=== PATIENT | female | born 1985 | race Caucasian/White ===

== ENCOUNTER 2020-04-09 21:58 | Inpatient (IN) ==
--- NOTE | 2020-04-09 22:55 | Obstetrical Progress Note ---
Date of Service April 09, 2020 Results & Data Vital Signs (Past 12 Hours) Vital Signs Temp Pulse Resp BP 04/09/20 22:12 36.5 C 82 18 133/91 04/09/20 22:10 82 133/91 PG Care Time/CCT Total # of Minutes Spent Total Time Spent with Patient: Total time spent is greater than 50% in coordination of care (as documented) at patient's floor/unit and/or counseling patient: Coding
[2020-04-09] MEDS ORDERED: OXYTOCIN 30 UNITS/500 ML BAG IV PRN (23:46)
--- NOTE | 2020-04-09 23:48 | History & Physical Report ---
Date of Service April 09, 2020 Assessment & Plan (1) Prolonged , antepartum: 34yo at 41.3 weeks GA. Patient presents in early labor. 1. Fetus: Cat 1 2. Labor: Progressing. Will admit and augment as needed 3. Vitals: WNL 4. GBS negative (2) Supervision of normal intrauterine in primigravida: History of Present Illness Primary Care Provider: Sandip Paulino, 34yo at 41.3 weeks GA. Patient presents in early labor. Denies VB, LOF. Good FM. complicated by Hx of LSIL pap with unremarkable colposcopy in early . Blood Type A Positive 09/01/19 Antibody Screen NEGATIVE 09/01/19 Hemoglobin 11.4 g/dL (12.0-16.0) L 03/14/20 Hematocrit 34.0 % (37-47) L 03/14/20 Mean Corpuscular Volume 90.7 fL (80-100) 03/14/20 Platelet Count 254 K/uL (130-400) 03/14/20 Rubella IgG Antibody Immune (Immune) 09/01/19 Rapid Plasma Reagin Nonreactive (Nonreactive) 09/01/19 Hepatitis B Surface Antigen Neg (Neg) 09/01/19 HIV (1&2) Ab and P24 Ag, 4th Gener Neg (Neg) 09/01/19 Glucose 1 Hour 50 gm Load 136 mg/dl (70-130) H 01/06/20 OB Optional Labs: Chlamydia trachomatis RNA NOT DETECTED (NOT DETECTED) Neisseria gonorrhoeae RNA NOT DETECTED (NOT DETECTED) Labs Reviewed: (-)cfDNA Patient declines CF/SMA- [facility] 2hr GTT 01/16/20 80/159/101-[facility] (-)GBS Allergies Allergy/AdvReac Type Severity Reaction Status Date / Time wheat Allergy Intermediate hives Verified 04/09/20 12:35 Influenza Virus Vaccines AdvReac Intermediate Headache Verified 04/09/20 12:35 dichloralphenazone AdvReac Mild emotional Verified 04/09/20 12:35 [From Midrin] breakdown isometheptene [From Midrin] AdvReac Mild emotional Verified 04/09/20 12:35 breakdown Home Medications Home Medications Medication Instructions Recorded Confirmed Type [id number]-[id number] fumarate-FA 1 tab PO DAILY 03/14/20 04/09/20 History [] psyllium husk [Fiber (psyllium 0.4 g PO DAILY 03/14/20 04/09/20 History husk)] Patient History Medical History Abnormal biochemical finding on screening of mother Anemia Breast tumor Breech presentation of fetus Depression with anxiety Encounter for anatomic survey Migraine Neutropenia UTI (urinary tract infection) UTI (urinary tract infection) during Varicella Surgical History History of colposcopy S/P wisdom tooth extraction Family History Mother Anemia Thyroid disease Depression Father Hypertension Hypercholesteremia Drinking problem Grandfather (Maternal) Hypertension Grandfather (Paternal) Hypertension Hypercholesteremia Grandmother (Maternal) Breast cancer Cervical cancer History of hysterectomy Depression Aunt Breast cancer Sister Depression Social History Preferred Language: Japanese Communication Ability: Effective Visual Impairment: No Limitations Hearing Ability: Normal Funeral Greeter Required: No Beliefs That Will Affect Care: None marital status: marital status details: Paul Li (33) [phone] Current Living Situation: Spouse Current Living Situation Comment: dog current occupational status: employed current occupation: Physical Therapist Other Information That Helps Us Care for You: No Feels Safe at Home: Yes Safety Concerns: Feels Safe At This Time Smoking Status: Never smoker Second Hand Exposure: No ; Hx Alcohol Use: No Hx Substance Use: No Childhood Exposure to Second-Hand Smoke: No Dental Care, Regularly: Yes Physical Activity Frequency: Does not Exercise Seatbelt Use: always Sunscreen Use: Yes Physical Exam Respiratory: normal respiratory effort, lungs clear to auscultation Cardiovascular: Rate/Rhythm: regular rate and regular rhythm Gastrointestinal (Abdomen): Percussion/Palpation: abdomen soft; abdomen nontender, no guarding and abdomen not rigid Psychiatric: A+Ox3, euthymic affect Genitourinary: Manual OB Exam: + cervical dilation 4 cm, + cervical effacement 80% and + station -2 OB Exam Monitor Tracing: + external FHT monitor used, + external uterine monitor used and + category I; no normal FHT variability, no late decelerations present and no variable decelerations Progressed from 3 to 4cm over 1hr labor check Results & Data Vital Signs (Past 12 Hours) Vital Signs Temp Pulse Resp BP 04/09/20 22:12 36.5 C 82 18 133/91 04/09/20 22:10 82 133/91 Coding Level of Care Code None Diagnoses Prolonged , antepartum O48.1 Supervision of normal intrauterine in primigravida Z34.00
[2020-04-10 00:08] LABS: Hematocrit (blood only) 34.3 % (37-47); Hemoglobin 11.7 g/dL (12.0-16.0); Mean Corpuscular Hemoglobin 30.5 pg (25-34); Mean Corpuscular Volume 89.3 fL (80-100); Mean Platelet Volume 10.4 fL (7.4-10.4); Platelet Count 260 K/uL (130-400); RDW Coefficient of Variation 13.5 % (11.5-14.5); RDW Standard Deviation 43.7 fL (36.4-46.3); Red Blood Count 3.84 M/uL (4.2-5.4); White Blood Count 12.26 K/uL (4.8-10.8)
[2020-04-10 00:25] LABS: Mean Corpuscular Hgb Conc 34.1 g/dL (32-36)
[2020-04-10] MEDS: LACTATED RINGER'S 1,000 ML IV PRN ×3 (02:09→10:52)
[2020-04-10] MEDS ORDERED: NALOXONE HCL 0.4 MG/1 ML VIAL/CARP IV PRN (02:44)
[2020-04-10] MEDS ORDERED: ONDANSETRON INJ 2 MG/ML 2 ML VIAL IV PRN (02:44)
[2020-04-10] MEDS ORDERED: NALBUPHINE HCL INJ 10 MG/ML AMP IV PRN (02:44)
[2020-04-10] MEDS ORDERED: DiphenhydrAMINE HCL 50 MG/ML VIAL IV PRN (02:44)
[2020-04-10] MEDS ORDERED: ePHEDrine sulfate 50 MG/ML AMP IV PRN (02:44)
[2020-04-10] MEDS ORDERED: NALOXONE HCL 1 MG in SODIUM CHLORIDE 0.9% 1000ML 1,000 ML IV PRN (02:44)
--- NOTE | 2020-04-10 02:51 | Anesthesiology Consultation ---
Date of Service April 10, 2020 Assessment & Plan Chart Review Chart Review: Patient NOT seen in Pre Admission Testing and Acceptable Risk for Labor Epidural Consults Requested none ASA ASA2 Proposed Anesthesia Anesthesia Type: Labor Epidural and CSE Risk / Benefits Reviewed With: PT / POA / Parent / Guardian, Accepts Plan and Informed Consent Obtained History Height/Weight Height: 5 ft 3 in Weight: 79.379 kg Allergies Allergy/AdvReac Type Severity Reaction Status Date / Time wheat Allergy Intermediate hives Verified 04/09/20 12:35 Influenza Virus Vaccines AdvReac Intermediate Headache Verified 04/09/20 12:35 dichloralphenazone AdvReac Mild emotional Verified 04/09/20 12:35 [From Midrin] breakdown isometheptene [From Midrin] AdvReac Mild emotional Verified 04/09/20 12:35 breakdown Medications Home Medications Medication Instructions Recorded Confirmed Last Taken [id number]-awtvhey fumarate-FA 1 tab PO DAILY 03/14/20 04/09/20 04/09/20 [] psyllium husk [Fiber (psyllium 0.4 g PO DAILY 03/14/20 04/09/20 04/09/20 husk)] Active Medications Generic Name Dose Route Start Last Admin Trade Name Freq PRN Reason Stop Dose Admin Lactated Ringer's 1,000 mls @ 125 mls/hr 04/09/20 23:46 04/10/20 02:09 Lr IV 04/11/20 23:45 999 mls/hr .Q8H PRN Administration L&D Protocol Protocol NPO Date Last Intake of Fluids: 04/10/20 Time Last Intake of Fluids: 01:00 Date Last Intake of Solids: 04/09/20 Time Last Intake of Solids: 21:00 Past Medical History Medical History Abnormal biochemical finding on screening of mother Anemia Breast tumor Breech presentation of fetus Depression with anxiety Encounter for anatomic survey Migraine Neutropenia UTI (urinary tract infection) UTI (urinary tract infection) during Varicella Exercise / Class Metabolic Activity II 4-5 Yardwork/Stairs/Walk up hill Past Family History Family History Mother Anemia Thyroid disease Depression Father Hypertension Hypercholesteremia Drinking problem Grandfather (Maternal) Hypertension Grandfather (Paternal) Hypertension Hypercholesteremia Grandmother (Maternal) Breast cancer Cervical cancer History of hysterectomy Depression Aunt Breast cancer Sister Depression Past Surgical History Surgical History History of colposcopy S/P wisdom tooth extraction Past Anesthesia History No Hx of Anesthesia Complications and No Family Hx of Anesthesia Complications Social History Smoking Status: Never smoker Hx Alcohol Use: No Hx Substance Use: No Review of Systems no chest pain or sob Physical Exam Vital Signs Last Vital Signs Temp 36.4 C L 04/10/20 02:36 Pulse 85 04/10/20 02:40 Resp 18 04/10/20 02:36 BP 128/88 04/10/20 02:36 Pulse Ox 97 04/10/20 02:40 ENMT Mouth: no TMJ abnormality Thyromental Distance: > or= 3.5 Finger Breadths Mallampati Class: II Neck normal visual inspection Respiratory normal respiratory effort Auscultation: lungs clear to auscultation bilaterally Cardiovascular Rate/Rhythm: regular rate and regular rhythm Musculoskeletal Spine: normal cervical ROM Neurologic moves all extremities Psychiatric Orientation: alert and oriented x 3 Testing Laboratory Results 04/09/20 23:53
[2020-04-10] MEDS: fentaNYL 2MCG/ML ROPIV 1.25MG/ML 100 ML BAG EPI PRN ×2 (03:10→10:51)
[2020-04-10] MEDS ORDERED: ePHEDrine sulfate 50 MG/ML AMP ONE (03:13)
[2020-04-10] MEDS ORDERED: BUPIVACAINE 0.25% 30 ML VIAL ONE (03:13)
[2020-04-10] MEDS ORDERED: fentaNYL citrate 100 MCG/2 ML VIAL ONE (03:13)
[2020-04-10] MEDS ORDERED: fentaNYL 2MCG/ML ROPIV 1.25MG/ML 100 ML BAG EPI ONE ×2 (03:14→14:39)
--- NOTE | 2020-04-10 08:14 | Labor Progress Brief Note ---
Date of Service April 10, 2020 Subjective Reason For Note: Routine Evaluation Assessment & Plan (1) Prolonged , antepartum: 34yo at 41.3 weeks GA. Patient presents in early labor. 1. Fetus: Cat 1 2. Labor: Progressing. Will admit and augment as needed 3. Vitals: WNL 4. GBS negative (2) Supervision of normal intrauterine in primigravida: Physical Exam Genitourinary: Manual OB Exam: + cervical dilation 8 cm, + cervical effacement 90%, + station 0 and + amniotic fluid meconium OB Exam Monitor Tracing: + external FHT monitor used, + external uterine monitor used, + category I and + normal FHT variability; no early decelerations present, no late decelerations present and no variable decelerations Results & Data Vital Signs (Past 12 Hours) Vital Signs Temp Pulse Resp BP Pulse Ox 04/10/20 08:10 98 H 96 04/10/20 08:05 87 96 04/10/20 08:00 79 96 04/10/20 07:59 88 113/71 04/10/20 07:55 92 H 97 04/10/20 07:50 100 H 97 04/10/20 07:46 87 121/72 04/10/20 07:45 37.1 C 90 20 96 04/10/20 07:40 84 95 04/10/20 07:35 89 95 04/10/20 07:31 82 107/61 04/10/20 07:30 83 95 04/10/20 07:25 80 96 04/10/20 07:20 72 95 04/10/20 07:15 77 96 04/10/20 07:14 75 20 106/64 04/10/20 07:10 80 96 04/10/20 07:05 77 96 04/10/20 07:00 92 H 97 04/10/20 06:59 75 108/65 04/10/20 06:57 94 H 93 04/10/20 06:55 76 95 04/10/20 06:50 88 95 04/10/20 06:45 78 96 04/10/20 06:44 85 109/69 04/10/20 06:40 79 96 04/10/20 06:35 89 95 04/10/20 06:32 91 H 94 04/10/20 06:30 100 H 95 05/12/20 06:29 86 111/67 0520 06:26 98 H 94 0520 06:25 92 H 95 0520 06:20 87 95 0520 06:19 81 94 0520 06:15 76 95 0520 06:14 83 105/66 0520 06:12 81 94 051220 06:10 88 95 05 06:05 88 95 05 06:01 78 104/66 0520 06:00 77 95 0520 05:55 90 96 05 05:50 87 96 05 05:46 36.6 C 69 18 113/67 04/10/20 05:45 72 97 05 05:40 91 H 97 05 05:35 107 H 97 04/10/20 05:30 87 96 05 05:29 83 112/71 05 05:25 88 96 05 05:20 87 96 05 05:15 91 H 96 05 05:14 78 113/72 05 05:10 88 95 05 05:05 79 96 05 05:00 88 96 05 04:59 87 112/73 0520 04:58 84 94 05 04:55 84 95 05 04:50 86 95 05 04:45 83 96 0520 04:44 80 111/70 0520 04:40 89 95 051220 04:35 80 95 051220 04:30 78 95 051220 04:29 84 112/68 0520 04:25 90 95 0520 04:20 81 95 0520 04:15 81 95 051220 04:14 77 115/71 051220 04:10 82 95 0520 04:05 79 95 051220 04:00 84 97 0512 03:59 78 112/71 0520 03:55 84 95 0520 03:51 80 94 0520 03:50 78 94 04/10/20 03:45 79 95 04/10/20 03:44 82 114/67 04/10/20 03:40 88 94 04/10/20 03:35 83 95 04/10/20 03:30 86 95 04/10/20 03:28 88 110/69 04/10/20 03:25 88 96 04/10/20 03:24 91 H 94 04/10/20 03:23 88 113/72 04/10/20 03:20 97 H 95 04/10/20 03:18 92 H 114/61 04/10/20 03:15 92 H 96 04/10/20 03:11 96 H 109/68 04/10/20 03:10 92 H 95 04/10/20 03:09 95 H 111/74 04/10/20 03:07 93 H 111/69 04/10/20 03:05 91 H 118/72 96 04/10/20 03:00 86 97 04/10/20 02:55 88 97 04/10/20 02:50 90 98 04/10/20 02:45 86 97 04/10/20 02:40 85 97 04/10/20 02:36 36.4 C L 81 18 128/88 04/10/20 02:35 85 98 04/09/20 22:12 36.5 C 82 18 133/91 04/09/20 22:10 82 133/91 Coding Level of Care Code None Diagnoses Prolonged , antepartum O48.1 Supervision of normal intrauterine in primigravida Z34.00
--- NOTE | 2020-04-10 09:10 | Labor Progress Brief Note ---
Date of Service April 10, 2020 Subjective comfortable Assessment & Plan (1) Prolonged , antepartum: contractions have spaced, plan to add pitocin for augmentation. Fetus category one. Physical Exam Constitutional: WD/WN, vitals as above Psychiatric: A+Ox3, euthymic affect Genitourinary: cx--/-2 toco--q2-5min efm--140s with mod variability accels to 170s, no decels Results & Data Vital Signs (Past 12 Hours) Vital Signs Temp Pulse Resp BP Pulse Ox 04/10/20 09:05 82 96 04/10/20 09:00 81 97 04/10/20 08:59 78 115/74 04/10/20 08:55 87 96 04/10/20 08:50 73 96 04/10/20 08:45 80 97 04/10/20 08:44 79 117/80 04/10/20 08:40 76 97 04/10/20 08:35 91 H 96 04/10/20 08:30 77 97 04/10/20 08:29 88 116/73 04/10/20 08:25 92 H 97 04/10/20 08:20 83 97 04/10/20 08:15 87 96 04/10/20 08:14 80 118/74 04/10/20 08:10 98 H 96 04/10/20 08:05 87 96 04/10/20 08:00 79 96 04/10/20 07:59 88 113/71 04/10/20 07:55 92 H 97 04/10/20 07:50 100 H 97 04/10/20 07:46 87 121/72 04/10/20 07:45 37.1 C 90 20 96 04/10/20 07:40 84 95 04/10/20 07:35 89 95 04/10/20 07:31 82 107/61 04/10/20 07:30 83 95 04/10/20 07:25 80 96 04/10/20 07:20 72 95 04/10/20 07:15 77 96 04/10/20 07:14 75 20 106/64 04/10/20 07:10 80 96 04/10/20 07:05 77 96 04/10/20 07:00 92 H 97 04/10/20 06:59 75 108/65 04/10/20 06:57 94 H 93 05 06:55 76 95 05 06:50 88 95 05 06:45 78 96 05 06:44 85 109/69 05 06:40 79 96 05 06:35 89 95 05 06:32 91 H 94 05 06:30 100 H 95 05 06:29 86 111/67 05 06:26 98 H 94 05 06:25 92 H 95 05 06:20 87 95 05 06:19 81 94 05 06:15 76 95 05 06:14 83 105/66 05 06:12 81 94 05 06:10 88 95 04/10/20 06:05 88 95 04/10/20 06:01 78 104/66 05 06:00 77 95 04/10/20 05:55 90 96 04/10/20 05:50 87 96 04/10/20 05:46 36.6 C 69 18 113/67 04/10/20 05:45 72 97 04/10/20 05:40 91 H 97 04/10/20 05:35 107 H 97 04/10/20 05:30 87 96 05 05:29 83 112/71 04/10/20 05:25 88 96 05 05:20 87 96 04/10/20 05:15 91 H 96 04/10/20 05:14 78 113/72 05 05:10 88 95 05 05:05 79 96 05 05:00 88 96 05 04:59 87 112/73 05 04:58 84 94 05 04:55 84 95 05 04:50 86 95 05 04:45 83 96 05 04:44 80 111/70 0520 04:40 89 95 051220 04:35 80 95 051220 04:30 78 95 05 04:29 84 112/68 05 04:25 90 95 05 04:20 81 95 04/10/20 04:15 81 95 04/10/20 04:14 77 115/71 04/10/20 04:10 82 95 04/10/20 04:05 79 95 04/10/20 04:00 84 97 04/10/20 03:59 78 112/71 04/10/20 03:55 84 95 04/10/20 03:51 80 94 04/10/20 03:50 78 94 04/10/20 03:45 79 95 04/10/20 03:44 82 114/67 04/10/20 03:40 88 94 04/10/20 03:35 83 95 04/10/20 03:30 86 95 04/10/20 03:28 88 110/69 04/10/20 03:25 88 96 04/10/20 03:24 91 H 94 04/10/20 03:23 88 113/72 04/10/20 03:20 97 H 95 04/10/20 03:18 92 H 114/61 04/10/20 03:15 92 H 96 04/10/20 03:11 96 H 109/68 04/10/20 03:10 92 H 95 04/10/20 03:09 95 H 111/74 04/10/20 03:07 93 H 111/69 04/10/20 03:05 91 H 118/72 96 04/10/20 03:00 86 97 04/10/20 02:55 88 97 04/10/20 02:50 90 98 04/10/20 02:45 86 97 04/10/20 02:40 85 97 04/10/20 02:36 36.4 C L 81 18 128/88 04/10/20 02:35 85 98 04/09/20 22:12 36.5 C 82 18 133/91 04/09/20 22:10 82 133/91 Coding Level of Care Code None Diagnoses Prolonged , antepartum O48.1
[2020-04-10] MEDS ORDERED: OXYTOCIN 30 UNITS/500 ML BAG IV PRN ×2 (09:20→17:59)
--- NOTE | 2020-04-10 15:15 | Labor Progress Brief Note ---
Date of Service April 10, 2020 Subjective feeling some pressure. needed pitocin. Assessment & Plan (1) Prolonged , antepartum: Will begin stage 2. fetus overall reassuring. Physical Exam Constitutional: WD/WN, vitals as above Psychiatric: A+Ox3, euthymic affect Genitourinary: cx--c/c/+1 toco--q2-3min efm--140s wtih mod variability, small accels, rare variable Results & Data Vital Signs (Past 12 Hours) Vital Signs Temp Pulse Resp BP Pulse Ox 04/10/20 15:10 91 H 100 04/10/20 15:05 81 97 04/10/20 15:01 85 130/80 04/10/20 15:00 91 H 97 04/10/20 14:55 85 98 04/10/20 14:50 86 99 04/10/20 14:46 82 119/82 04/10/20 14:45 81 98 04/10/20 14:40 86 97 04/10/20 14:35 70 98 04/10/20 14:30 82 112/74 97 04/10/20 14:25 70 98 04/10/20 14:20 77 99 04/10/20 14:15 72 99 04/10/20 14:14 75 132/83 04/10/20 14:10 68 99 04/10/20 14:05 69 97 04/10/20 14:00 37.3 C 71 20 120/79 97 04/10/20 13:55 74 98 04/10/20 13:50 69 98 04/10/20 13:46 78 112/77 04/10/20 13:45 78 97 04/10/20 13:40 91 H 97 04/10/20 13:35 96 H 98 04/10/20 13:30 73 96 04/10/20 13:29 75 106/69 04/10/20 13:25 87 97 04/10/20 13:20 74 97 04/10/20 13:16 75 104/63 04/10/20 13:15 74 97 04/10/20 13:10 68 97 04/10/20 13:05 79 96 04/10/20 13:00 68 96 04/10/20 12:59 78 106/65 04/10/20 12:55 72 98 04/10/20 12:53 37.1 C 18 20 12:50 75 96 05/1220 12:45 80 103/64 96 05/1220 12:40 71 96 0520 12:35 71 97 0520 12:30 73 98 05/1220 12:29 64 114/72 0520 12:25 66 95 05/20 12:20 81 96 0520 12:15 69 97 0520 12:14 68 107/70 0520 12:10 75 97 0520 12:05 70 96 05/20 12:00 68 112/67 96 05/20 11:55 63 97 05/20 11:50 67 97 0520 11:45 69 97 05/20 11:44 71 108/71 0520 11:40 69 95 05/20 11:35 67 97 05/20 11:30 67 111/68 96 0520 11:25 72 97 05/20 11:20 76 97 05/1220 11:15 80 96 05/20 11:14 73 108/66 05//20 11:10 67 96 05/20 11:05 81 95 0520 11:00 81 96 0520 10:59 77 108/63 05/12/20 10:57 69 94 05/12/20 10:56 37.3 C 20 04/10/20 10:55 78 96 0520 10:50 75 97 051220 10:45 72 110/69 97 05/12/20 10:40 71 97 05/12/20 10:35 78 96 05/12/20 10:30 90 113/70 96 05/12/20 10:25 89 97 05/12/20 10:20 68 98 05/12/20 10:15 73 109/65 96 05/12/20 10:10 83 96 05/12/20 10:05 69 97 05/12/20 10:00 72 121/70 96 05/12/20 09:55 73 97 05/1220 09:50 78 97 05/1220 09:45 71 118/74 96 05/12/20 09:40 71 96 05/12/20 09:35 68 97 05 09:30 72 113/74 96 04/10/20 09:25 73 97 04/10/20 09:20 76 96 04/10/20 09:15 81 96 05 09:14 79 113/74 04/10/20 09:10 75 96 04/10/20 09:05 82 96 04/10/20 09:00 36.9 C 81 20 97 04/10/20 08:59 78 115/74 04/10/20 08:55 87 96 04/10/20 08:50 73 96 04/10/20 08:45 80 97 04/10/20 08:44 79 117/80 04/10/20 08:40 76 97 04/10/20 08:35 91 H 96 04/10/20 08:30 77 97 04/10/20 08:29 88 116/73 04/10/20 08:25 92 H 97 04/10/20 08:20 83 97 04/10/20 08:15 87 96 04/10/20 08:14 80 118/74 04/10/20 08:10 98 H 96 04/10/20 08:05 87 96 04/10/20 08:00 79 96 04/10/20 07:59 88 113/71 04/10/20 07:55 92 H 97 04/10/20 07:50 100 H 97 04/10/20 07:46 87 121/72 04/10/20 07:45 37.1 C 90 20 96 04/10/20 07:40 84 95 04/10/20 07:35 89 95 04/10/20 07:31 82 107/61 04/10/20 07:30 83 95 04/10/20 07:25 80 96 04/10/20 07:20 72 95 04/10/20 07:15 77 96 05 07:14 75 20 106/64 04/10/20 07:10 80 96 04/10/20 07:05 77 96 04/10/20 07:00 92 H 97 04/10/20 06:59 75 108/65 04/10/20 06:57 94 H 93 04/10/20 06:55 76 95 04/10/20 06:50 88 95 04/10/20 06:45 78 96 05 06:44 85 109/69 0520 06:40 79 96 05 06:35 89 95 05 06:32 91 H 94 05 06:30 100 H 95 05 06:29 86 111/67 04/10/20 06:26 98 H 94 05 06:25 92 H 95 05 06:20 87 95 04/10/20 06:19 81 94 05 06:15 76 95 05 06:14 83 105/66 05 06:12 81 94 05 06:10 88 95 04/10/20 06:05 88 95 04/10/20 06:01 78 104/66 05 06:00 77 95 04/10/20 05:55 90 96 05 05:50 87 96 04/10/20 05:46 36.6 C 69 18 113/67 04/10/20 05:45 72 97 05 05:40 91 H 97 04/10/20 05:35 107 H 97 04/10/20 05:30 87 96 04/10/20 05:29 83 112/71 05 05:25 88 96 04/10/20 05:20 87 96 05 05:15 91 H 96 04/10/20 05:14 78 113/72 05 05:10 88 95 04/10/20 05:05 79 96 05 05:00 88 96 04/10/20 04:59 87 112/73 05 04:58 84 94 05 04:55 84 95 05 04:50 86 95 0520 04:45 83 96 05 04:44 80 111/70 0520 04:40 89 95 05 04:35 80 95 0520 04:30 78 95 0520 04:29 84 112/68 051220 04:25 90 95 0520 04:20 81 95 051220 04:15 81 95 05 04:14 77 115/71 05 04:10 82 95 04/10/20 04:05 79 95 04/10/20 04:00 84 97 04/10/20 03:59 78 112/71 04/10/20 03:55 84 95 04/10/20 03:51 80 94 04/10/20 03:50 78 94 04/10/20 03:45 79 95 04/10/20 03:44 82 114/67 04/10/20 03:40 88 94 04/10/20 03:35 83 95 04/10/20 03:30 86 95 04/10/20 03:28 88 110/69 04/10/20 03:25 88 96 04/10/20 03:24 91 H 94 04/10/20 03:23 88 113/72 04/10/20 03:20 97 H 95 04/10/20 03:18 92 H 114/61 04/10/20 03:15 92 H 96 Coding Level of Care Code None Diagnoses Prolonged , antepartum O48.1
--- NOTE | 2020-04-10 15:46 | Labor Progress Brief Note ---
Date of Service April 10, 2020 Subjective pushing with excellent effort Assessment & Plan (1) Prolonged , antepartum: continue second stage . fetus reassuring. anticipate . Physical Exam Constitutional: WD/WN, vitals as above Psychiatric: A+Ox3, euthymic affect Genitourinary: station +1-2 with push efm--150s with mod variability, variable to 90s with push, good return. Results & Data Vital Signs (Past 12 Hours) Vital Signs Temp Pulse Resp BP Pulse Ox 04/10/20 15:44 86 138/71 04/10/20 15:40 99 H 96 04/10/20 15:35 88 97 04/10/20 15:30 89 137/72 98 04/10/20 15:25 90 97 04/10/20 15:20 117 H 96 04/10/20 15:15 115 H 133/80 99 04/10/20 15:10 91 H 100 04/10/20 15:05 81 97 04/10/20 15:01 85 130/80 04/10/20 15:00 91 H 97 04/10/20 14:55 85 98 04/10/20 14:50 86 99 04/10/20 14:46 82 119/82 04/10/20 14:45 81 98 04/10/20 14:40 86 97 04/10/20 14:35 70 98 04/10/20 14:30 82 112/74 97 04/10/20 14:25 70 98 04/10/20 14:20 77 99 04/10/20 14:15 72 99 04/10/20 14:14 75 132/83 04/10/20 14:10 68 99 04/10/20 14:05 69 97 04/10/20 14:00 37.3 C 71 20 120/79 97 04/10/20 13:55 74 98 04/10/20 13:50 69 98 04/10/20 13:46 78 112/77 04/10/20 13:45 78 97 04/10/20 13:40 91 H 97 04/10/20 13:35 96 H 98 04/10/20 13:30 73 96 04/10/20 13:29 75 106/69 04/10/20 13:25 87 97 04/10/20 13:20 74 97 05/12/20 13:16 75 104/63 05/20 13:15 74 97 05/1220 13:10 68 97 05/20 13:05 79 96 0520 13:00 68 96 0520 12:59 78 106/65 05/12/20 12:55 72 98 05/20 12:53 37.1 C 18 0520 12:50 75 96 05/20 12:45 80 103/64 96 0520 12:40 71 96 0520 12:35 71 97 05/1220 12:30 73 98 05/20 12:29 64 114/72 0520 12:25 66 95 05/20 12:20 81 96 0520 12:15 69 97 05/20 12:14 68 107/70 0520 12:10 75 97 0520 12:05 70 96 05/20 12:00 68 112/67 96 0520 11:55 63 97 05/20 11:50 67 97 05/12/20 11:45 69 97 05/12/20 11:44 71 108/71 05/12/20 11:40 69 95 05/12/20 11:35 67 97 05/12/20 11:30 67 111/68 96 05/12/20 11:25 72 97 05/12/20 11:20 76 97 05/12/20 11:15 80 96 05/12/20 11:14 73 108/66 05/12/20 11:10 67 96 05/1220 11:05 81 95 051220 11:00 81 96 05/12/20 10:59 77 108/63 05/12/20 10:57 69 94 05/12/20 10:56 37.3 C 20 0520 10:55 78 96 05/12/20 10:50 75 97 05/12/20 10:45 72 110/69 97 05/12/20 10:40 71 97 05/12/20 10:35 78 96 05/12/20 10:30 90 113/70 96 05/12/20 10:25 89 97 05/12/20 10:20 68 98 05/12/20 10:15 73 109/65 96 05/12/20 10:10 83 96 0520 10:05 69 97 0520 10:00 72 121/70 96 0520 09:55 73 97 05 09:50 78 97 0520 09:45 71 118/74 96 0520 09:40 71 96 0520 09:35 68 97 05 09:30 72 113/74 96 04/10/20 09:25 73 97 05 09:20 76 96 05 09:15 81 96 0520 09:14 79 113/74 05 09:10 75 96 05 09:05 82 96 04/10/20 09:00 36.9 C 81 20 97 04/10/20 08:59 78 115/74 05 08:55 87 96 05 08:50 73 96 04/10/20 08:45 80 97 05 08:44 79 117/80 05 08:40 76 97 04/10/20 08:35 91 H 96 04/10/20 08:30 77 97 05 08:29 88 116/73 05 08:25 92 H 97 04/10/20 08:20 83 97 04/10/20 08:15 87 96 04/10/20 08:14 80 118/74 05 08:10 98 H 96 04/10/20 08:05 87 96 04/10/20 08:00 79 96 04/10/20 07:59 88 113/71 05 07:55 92 H 97 04/10/20 07:50 100 H 97 04/10/20 07:46 87 121/72 0520 07:45 37.1 C 90 20 96 04/10/20 07:40 84 95 051220 07:35 89 95 051220 07:31 82 107/61 051220 07:30 83 95 051220 07:25 80 96 051220 07:20 72 95 051220 07:15 77 96 05 07:14 75 20 106/64 0512/20 07:10 80 96 05/12/20 07:05 77 96 04/10/20 07:00 92 H 97 04/10/20 06:59 75 108/65 05 06:57 94 H 93 04/10/20 06:55 76 95 04/10/20 06:50 88 95 04/10/20 06:45 78 96 04/10/20 06:44 85 109/69 04/10/20 06:40 79 96 04/10/20 06:35 89 95 04/10/20 06:32 91 H 94 04/10/20 06:30 100 H 95 04/10/20 06:29 86 111/67 04/10/20 06:26 98 H 94 04/10/20 06:25 92 H 95 04/10/20 06:20 87 95 04/10/20 06:19 81 94 04/10/20 06:15 76 95 04/10/20 06:14 83 105/66 04/10/20 06:12 81 94 04/10/20 06:10 88 95 04/10/20 06:05 88 95 04/10/20 06:01 78 104/66 04/10/20 06:00 77 95 04/10/20 05:55 90 96 04/10/20 05:50 87 96 04/10/20 05:46 36.6 C 69 18 113/67 04/10/20 05:45 72 97 04/10/20 05:40 91 H 97 04/10/20 05:35 107 H 97 04/10/20 05:30 87 96 04/10/20 05:29 83 112/71 04/10/20 05:25 88 96 05 05:20 87 96 04/10/20 05:15 91 H 96 04/10/20 05:14 78 113/72 04/10/20 05:10 88 95 04/10/20 05:05 79 96 04/10/20 05:00 88 96 04/10/20 04:59 87 112/73 05 04:58 84 94 04/10/20 04:55 84 95 04/10/20 04:50 86 95 04/10/20 04:45 83 96 04/10/20 04:44 80 111/70 05 04:40 89 95 05 04:35 80 95 04/10/20 04:30 78 95 04/10/20 04:29 84 112/68 04/10/20 04:25 90 95 04/10/20 04:20 81 95 04/10/20 04:15 81 95 04/10/20 04:14 77 115/71 04/10/20 04:10 82 95 04/10/20 04:05 79 95 04/10/20 04:00 84 97 04/10/20 03:59 78 112/71 04/10/20 03:55 84 95 04/10/20 03:51 80 94 04/10/20 03:50 78 94 Coding Level of Care Code None Diagnoses Prolonged , antepartum O48.1
--- NOTE | 2020-04-10 17:41 | Delivery Summary ---
Vaginal Delivery Summary Date of Service April 10, 2020 Vaginal Delivery Summary Pre-operative Diagnosis: at 41 weeks labor thick meconium Post-operative Diagnosis: same Procedure: arom pitocin augmentation stellate, bilateral vaginal tear and second degree laceration repair EBL: 450cc Anesthesia: epidural Procedure: The patient pushed for 1 hr and 45 min to deliver a viable female in ariana position. The anterior shoulder was immediately delivered easily and the rest of the was then delivered without difficulty. The baby was placed on the maternal abdomen for drying and attention. The nose and mouth were bulb suctioned and the was crying. Cord was clamped and cut. Cord blood and segment obtained. Placenta delivered spontaneous, intact with a three vessel cord. Cervix/sulci/rectum were intact. A stellate, bilateral vaginal laceration was repaired and then the second degree perineal tear repaired. A reinforcing suture was placed in the fascia of the rectal sphincter. Rectal exam demonstrated intact rectum and overall intact rectal sphincter. Hemostasis obtained with dilute pitocin and fundal massage. Apgars were 8/9. Mother and baby doing well at the end of the delivery. [facility] [place] Vaginal Delivery Charge Vaginal Delivery Codes: 08260 global code for the antepartum, delivery, and post-
[2020-04-10] MEDS ORDERED: HYDROCORTISONE ACETATE 25 MG SUPP PR PRN (17:59)
[2020-04-10] MEDS ORDERED: BENZOCAINE 20% AER SPR 82.5 GM CAN EXT PRN (17:59)
[2020-04-10] MEDS ORDERED: DIPHTHERIA/TETANUS/PERTUSSIS 0.5 ML SYR/VIAL IM ONE (17:59)
[2020-04-10] MEDS ORDERED: SUPERCREAM 0.870% 15 GM JAR EXT PRN (17:59)
--- NOTE | 2020-04-10 18:17 | Anesthesia Procedure Note ---
Date of Service April 10, 2020 Anesthesia Post Epidural Note Vital Signs Vital Signs: Temp Pulse Resp BP Pulse Ox 37.3 C 114 H 20 133/73 96 04/10/20 14:00 04/10/20 18:14 04/10/20 14:00 04/10/20 18:14 04/10/20 17:30 Notes Mental Status: alert / awake / arousable and participated in evaluation Patient Amnestic to Procedure: No Nausea / Vomiting: adequately controlled Pain: adequately controlled Airway Patency, RR, SpO2: stable & adequate BP & HR: stable & adequate Hydration State: stable & adequate Neuraxial Anesthesia: was administered and sensory block is resolving Anesthetic Complications: no major complications apparent and Pt Satisfied with anesthetic care Epidural: Removed without complications and With tip intact
[2020-04-10] MEDS: IBUPROFEN 600 MG TAB PO PRN ×2 (19:21→23:48)
[2020-04-10] MEDS: DOCUSATE SODIUM 100 MG CAP PO SCH (21:37)
[2020-04-11] MEDS: IBUPROFEN 600 MG TAB PO PRN ×5 (03:44→23:15)
--- NOTE | 2020-04-11 06:25 | Obstetrical Progress Note ---
Date of Service April 11, 2020 Assessment & Plan (1) Status post vaginal delivery: Aida is a 34 yo on PPD 1 after a at 41w 4d. -GBS -, Blood Type A+, Rubella immune -Vitals reviewed: BP 94/60, HR 90s -Hemoglobin reviewed: 8.5, down from 11.7 on admission. patient with EBL of 450cc with delivery. -patient denies dizziness/lightheadedness/palpitations -we will add oral iron supplement -bottom soreness expected given 2rd degree tear; continue motrin as needed Continue routine post- care. - After discharge will have [address] Rocha. Admission and Anticipated Discharge Date Admission Date: April 09, 2020 Supervising Physician Co-Signing Physician Notes Resident Physician Supervision Note: I interviewed and examined the patient. Discussed with Dr. Osuna and agree with findings and plan as documented in the note. Any exceptions or clarifications are listed here: Doing well this am. Hgb noted. she is currently asymptomatic, and will monitor. She notes alot of aches and pains associated with her long push. Reassured. Documented By: Elise Rocha MD, FACOG Subjective Ambulation: ambulating normally Voiding: no voiding problems Passing Gas:: Yes Diet Tolerance:: gluten free, regular diet Lochia:: moderate Feeding Type:: breast feeding bottom is sore, improves with motrin. Review of Systems Constitutional: no fever, no chills and no sweats Eyes: no worsening vision Respiratory: no cough and no dyspnea Cardiovascular: no chest pain, no palpitations, no lightheadedness, no edema and no calf pain Gastrointestinal: no nausea and no vomiting Genitourinary: no dysuria and no urinary frequency Neurologic: no headache(s) Physical Exam Constitutional: WD/WN, vitals as above no acute distress Respiratory: normal respiratory effort, lungs clear to auscultation does not use accessory muscles Auscultation: no crackles, no rales, no rhonchi, no wheezes and no pleural rub Cardiovascular: Rate/Rhythm: regular rate and regular rhythm Heart Sounds: normal S1 and normal S2; no gallop, no murmur and no cardiac rub Extremities: no calf tenderness and no pedal edema Gastrointestinal (Abdomen): Inspection/Auscultation: normal bowel sounds; abdomen not distended Percussion/Palpation: abdomen soft Genitourinary: Uterus: fundus firm, palpable 1 cm below the umbilicus Results & Data ([facility]) Vital Signs (Past 12 Hours) Vital Signs Temp Pulse Pulse Resp BP BP Pulse Ox 04/11/20 03:20 36.6 C 91 H 17 94/60 L 04/10/20 23:45 36.8 C 97 H 20 97/63 L 96 04/10/20 20:25 36.8 C 118 H 18 119/80 96 04/10/20 19:29 36.7 C 122 H 18 122/83 04/10/20 19:14 118 H 130/81 04/10/20 18:59 114 H 139/79 04/10/20 18:44 122 H 120/88 04/10/20 18:29 115 H 114/79 Resident Activity Tracking Resident Involvement: Resident Care Provided Care Provided: OB Delivery
[2020-04-11 06:28] LABS: Hematocrit (blood only) 24.7 % (37-47); Hemoglobin 8.5 g/dL (12.0-16.0); Mean Corpuscular Hemoglobin 31.3 pg (25-34); Mean Corpuscular Hgb Conc 34.4 g/dL (32-36); Mean Corpuscular Volume 90.8 fL (80-100); Mean Platelet Volume 10.2 fL (7.4-10.4); Platelet Count 198 K/uL (130-400); RDW Coefficient of Variation 13.8 % (11.5-14.5); RDW Standard Deviation 45.2 fL (36.4-46.3); Red Blood Count 2.72 M/uL (4.2-5.4)
[2020-04-11] MEDS ORDERED: NAPHAZOLIN/PHENIRAMIN OPH SOLN 75 DROPS/5 ML BTL OP PRN (07:18)
[2020-04-11] MEDS: DOCUSATE SODIUM 100 MG CAP PO SCH ×2 (08:13→20:55)
[2020-04-11] MEDS: FERROUS SULFATE 325 MG TAB PO SCH (08:13)
[2020-04-11] MEDS: PRENATAL VITAMIN 1 TAB PO SCH (08:15)
[2020-04-11] MEDS: PSYLLIUM 58.6% POWDER PACKET PO SCH (08:20)
[2020-04-11] MEDS: ACETAMINOPHEN 325 MG TAB PO PRN ×2 (10:56→20:58)
[2020-04-12] MEDS: IBUPROFEN 600 MG TAB PO PRN ×2 (04:57→10:36)
[2020-04-12 06:25] LABS: Hematocrit (blood only) 23.3 % (37-47)
--- NOTE | 2020-04-12 06:56 | Obstetrical Progress Note ---
Date of Service April 12, 2020 Assessment & Plan (1) Status post vaginal delivery: Aida is a 34 yo on PPD 2 after a at 41w 4d. -GBS -, Blood Type A+, Rubella immune -Vitals reviewed: BP 115/79, HR 114 -Hemoglobin reviewed: 8.0, down from 8.5 yesterday and 11.7 on admission. -patient with EBL of 450cc with delivery. lochia markedly slowed today -patient denies dizziness/lightheadedness/palpitations -continue oral iron supplement -bottom soreness expected given 2rd degree tear; continue motrin as needed Discharge instructions reviewed. Ready for d/c - After discharge will have [address] Rocha. Admission and Anticipated Discharge Date Admission Date: April 09, 2020 Supervising Physician Co-Signing Physician Notes Resident Physician Supervision Note: I interviewed and examined the patient. Discussed with Dr. Osuna and agree with findings and plan as documented in the note. Any exceptions or clarifications are listed here: [None] Documented By: Mackenzie Barrios MD, FACOG Subjective Ambulation: ambulating normally Voiding: no voiding problems Passing Gas:: Yes Diet Tolerance:: gluten free, regular diet Lochia:: small Feeding Type:: breast feeding bottom is sore, improves with motrin. Review of Systems Constitutional: no fever, no chills and no sweats Eyes: no worsening vision Respiratory: no cough and no dyspnea Cardiovascular: no chest pain, no palpitations, no lightheadedness, no edema and no calf pain Gastrointestinal: no nausea and no vomiting Genitourinary: no dysuria and no urinary frequency Neurologic: no headache(s) Physical Exam Constitutional: WD/WN, vitals as above no acute distress Eyes: + right scleral hemorrhage Respiratory: normal respiratory effort, lungs clear to auscultation does not use accessory muscles Auscultation: no crackles, no rales, no rhonchi, no wheezes and no pleural rub Cardiovascular: Rate/Rhythm: regular rhythm and + tachycardic Heart Sounds: normal S1 and normal S2; no gallop, no murmur and no cardiac rub Extremities: no calf tenderness and no pedal edema Gastrointestinal (Abdomen): Inspection/Auscultation: normal bowel sounds; abdomen not distended Percussion/Palpation: abdomen soft Genitourinary: Uterus: fundus firm, palpable 2 cm below the umbilicus Resident Activity Tracking Resident Involvement: Resident Care Provided Care Provided: OB Delivery
[2020-04-12] MEDS: PRENATAL VITAMIN 1 TAB PO SCH (07:50)
[2020-04-12] MEDS: DOCUSATE SODIUM 100 MG CAP PO SCH (07:50)
[2020-04-12] MEDS: ACETAMINOPHEN 325 MG TAB PO PRN (07:50)
[2020-04-12] MEDS: PSYLLIUM 58.6% POWDER PACKET PO SCH (07:50)
[2020-04-12] MEDS: FERROUS SULFATE 325 MG TAB PO SCH (07:50)
[2020-04-12] MEDS ORDERED: OXYCODONE/ACETAMINOPHEN 5mg/325mg TAB PO STA (12:12)
== END 2020-04-12 14:40 | disposition home or self-care (01) | DRG 807 ==
LOC: OPB 21:58 → 4S1 21:58 → 4S2 04-10 20:22

== ENCOUNTER 2022-01-20 07:04 | Inpatient (IN) ==
--- NOTE | 2022-01-10 10:53 | Anesthesiology Consultation ---
Date of Service January 10, 2022 Assessment & Plan (1) Encounter for pre-operative examination: Chart Review Chart Review: entry level paralegal initiated -BSG DOS to anesthesiologist discretion (pt gestational DM) Per nursing assessment 01/10/22, patient denies any recent travel. No known Covid positive exposures or Covid related symptoms. Pt tested Covid positive 10/17/21 (by day of - will be >90 days). Pt is fully vaccinated for Covid. Preop Covid testing scheduled 01/16/22= will await results. History Surgery Operation Date: 01/20/22 08:50 Proposed Procedures p Section in LD (Delivery of baby through abdominal incision) - Sara Contreras, Height/Weight Height: 5 ft 3 in Weight: 78.018 kg Allergies Allergy/AdvReac Type Severity Reaction Status Date / Time lavender (Lavandula Allergy Intermediate hives/itchi Verified 01/10/22 09:54 angustifolia) ng latex Allergy Mild localized Verified 01/10/22 09:55 latex - hives/itching pollen extracts Allergy Mild Sinus and Verified 01/10/22 09:52 hearing problems Influenza Virus Vaccines AdvReac Intermediate Headache Verified 01/10/22 09:52 adhesive tape AdvReac Mild skin Verified 01/10/22 09:55 irritation dichloralphenazone AdvReac Mild emotional Verified 01/10/22 09:52 [From Midrin] breakdown isometheptene [From Midrin] AdvReac Mild emotional Verified 01/10/22 09:52 breakdown nickel AdvReac Mild skin Verified 01/10/22 09:55 irritaion wheat AdvReac Mild Nausea Verified 01/10/22 09:54 Medications Home Medications Medication Instructions Recorded Confirmed Last Taken vit no.133-ferrous 1 tab PO QAM 03/14/20 01/10/22 04/09/20 fumarate 28 mg-folic acid 800 mcg tablet () cholecalciferol (vitamin D3) 125 125 mcg PO DAILY #30 cap 10/04/20 01/10/22 Unknown mcg (5,000 unit) capsule cromolyn 5.2 mg/spray (4 %) nasal 1 spray INTRANASAL TID #26 ml 05/20/21 01/10/22 Unknown spray acetone (urine) test (Ketone Urine #50 ea 11/21/21 01/08/22 Unknown Test) blood sugar diagnostic (OneTouch #150 ea 11/21/21 01/08/22 Unknown Verio test strips) lancets 33 gauge (OneTouch Delica #150 ea 11/21/21 01/08/22 Unknown Plus Lancet) budesonide 32 mcg/actuation nasal 2 spray INTRANASAL QAM 01/10/22 01/10/22 Unknown spray calcium carbonate 300 mg (750 mg) 300 mg PO TID PRN 01/10/22 01/10/22 Unknown chewable tablet (Tums) Past Medical History Medical History (Updated 01/10/22 @ 10:52 by Chaparrita Bland PA-C) Anemia hx Breast tumor right breat (benign) Conductive hearing loss of both ears HF CHL Depression with anxiety hx - well controlled currently Gestational diabetes diet controlled. Group B streptococcal bacteriuria current H/O gastroesophageal reflux (GERD) History of COVID-19 tested positive 10/17/21. no hospitalization. coughing, nasal congestion, fatigue, generalized aches/pains History of neutropenia remission since age 19. Migraine hx Seasonal allergies Past Family History Family History Mother Anemia Thyroid disease Depression Allergies Asthma Father Hypertension Hypercholesteremia Drinking problem Glaucoma Grandfather (Maternal) Hypertension Stroke Lung cancer Grandfather (Paternal) Hypertension Hypercholesteremia Hearing loss Grandmother (Maternal) Breast cancer Cervical cancer History of hysterectomy Depression Cancer Lung disease Aunt Breast cancer Cancer Hx of Crohn's disease Sister Depression Hearing loss Allergies Asthma Father Allergies Brother Allergies Denies family history of Colon cancer Ovarian cancer Prostate cancer No family history of adverse response to anesthesia No family history of bleeding disorder Heart disease Myocardial infarction Past Surgical History Surgical History History of colonoscopy History of colposcopy Hx of lumpectomy (~2003) right S/P wisdom tooth extraction Social History Smoking Status: Never smoker Do You Dip or Chew Tobacco: No Hx Alcohol Use: Yes Alcohol type: wine Hx Substance Use: No substance use type: does not use
--- NOTE | 2022-01-17 17:50 | History & Physical Report ---
Date of Service January 17, 2022 Assessment & Plan (1) : Plan: Reviewed informed consent in office. Plan for primary elective section. History of Present Illness Chief Complaint: scheduled elective Primary Care Provider: Sandip Paulino, 36yo @ 39 02/03, scheduled for elective . 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 GBS Bacteriuria - Treat in labor GDM AC u/s's q 4 weeks C/S SCHEDULED FOR 01/20/[address] ELIE RODRIGUEZ COVID TEST ON 01/16/2022-ORDERED Allergies Allergy/AdvReac Type Severity Reaction Status Date / Time lavender (Lavandula Allergy Intermediate hives/itchi Verified 01/17/22 13:51 angustifolia) ng latex Allergy Mild localized Verified 01/17/22 13:51 latex - hives/itching pollen extracts Allergy Mild Sinus and Verified 01/17/22 13:51 hearing problems Influenza Virus Vaccines AdvReac Intermediate Headache Verified 01/17/22 13:51 adhesive tape AdvReac Mild skin Verified 01/17/22 13:51 irritation dichloralphenazone AdvReac Mild emotional Verified 01/17/22 13:51 [From Midrin] breakdown isometheptene [From Midrin] AdvReac Mild emotional Verified 01/17/22 13:51 breakdown nickel AdvReac Mild skin Verified 01/17/22 13:51 irritaion wheat AdvReac Mild Nausea Verified 01/17/22 13:51 Home Medications Medication Instructions Recorded Confirmed Type vit no.133-ferrous 1 tab PO QAM 03/14/20 01/17/22 History fumarate 28 mg-folic acid 800 mcg tablet () cholecalciferol (vitamin D3) 125 125 mcg PO DAILY #30 cap 10/04/20 01/17/22 Rx mcg (5,000 unit) capsule cromolyn 5.2 mg/spray (4 %) nasal 1 spray INTRANASAL TID #26 ml 05/20/21 01/17/22 Rx spray acetone (urine) test (Ketone Urine #50 ea 11/21/21 01/17/22 Rx Test) blood sugar diagnostic (OneTouch #150 ea 11/21/21 01/17/22 Rx Verio test strips) lancets 33 gauge (OneTouch Delica #150 ea 11/21/21 01/17/22 Rx Plus Lancet) budesonide 32 mcg/actuation nasal 2 spray INTRANASAL QAM 01/10/22 01/17/22 History spray calcium carbonate 300 mg (750 mg) 300 mg PO TID PRN 01/10/22 01/17/22 History chewable tablet (Tums) Patient History Medical History (Updated 01/10/22 @ 10:52 by Chaparrita Bland PA-C) Anemia hx Breast tumor right breat (benign) Conductive hearing loss of both ears HF CHL Depression with anxiety hx - well controlled currently Gestational diabetes diet controlled. Group B streptococcal bacteriuria current H/O gastroesophageal reflux (GERD) History of COVID-19 tested positive 10/17/21. no hospitalization. coughing, nasal congestion, fatigue, generalized aches/pains History of neutropenia remission since age 19. Migraine hx Seasonal allergies Surgical History History of colonoscopy History of colposcopy Hx of lumpectomy (~2003) right S/P wisdom tooth extraction Family History Mother Anemia Thyroid disease Depression Allergies Asthma Father Hypertension Hypercholesteremia Drinking problem Glaucoma Grandfather (Maternal) Hypertension Stroke Lung cancer Grandfather (Paternal) Hypertension Hypercholesteremia Hearing loss Grandmother (Maternal) Breast cancer Cervical cancer History of hysterectomy Depression Cancer Lung disease Aunt Breast cancer Cancer Hx of Crohn's disease Sister Depression Hearing loss Allergies Asthma Father Allergies Brother Allergies Denies family history of Colon cancer Ovarian cancer Prostate cancer No family history of adverse response to anesthesia No family history of bleeding disorder Heart disease Myocardial infarction Social History Smoking Status: Never smoker Second Hand Exposure: No; Hx Alcohol Use: Yes Alcohol type: wine Alcohol Intake Frequency: 2-3 x/Week Hx Substance Use: No Preferred Language: Palestinian Communication Ability: Effective Visual Impairment: No Limitations Hearing Ability: Normal Ex Assistant/Program Director Required: No Beliefs That Will Affect Care: None marital status: marital status details: Paul Li (35) [phone] Current Living Situation: Family Current Living Situation Comment: lives with family and dog current occupational status: employed and other current occupation: Physical Therapist- teaching online. How many Children do You have: 1 Feels Safe at Home: Yes Childhood Exposure to Second-Hand Smoke: No Dental Care, Regularly: Yes Physical Activity Frequency: Does not Exercise Seatbelt Use: always Sunscreen Use: Yes Assistive Devices: None Review of Systems All systems reviewed & are unremarkable except as noted in HPI & below Physical Exam Constitutional: WD/WN, vitals as above Respiratory: normal respiratory effort, lungs clear to auscultation no resp iratory distress Cardiovascular: Rate/Rhythm: regular rate and regular rhythm Gastrointestinal (Abdomen): Inspection/Auscultation: abdomen normal to inspection Percussion/Palpation: abdomen soft; abdomen nontender Gravid. No s/s chorio or abruption. Skin: no rashes, warm and dry Psychiatric: A+Ox3, euthymic affect Coding Level of Care Code None Diagnoses Z34.90
[~2022-01-20 07:04] MED LIST: CITRIC ACID/SODIUM CITRATE 15 ML UDC PO SCH; LACTATED RINGER'S 1,000 ML IV PRN; LACTATED RINGER'S 1,000 ML IV SCH; ceFAZolin 2,000 MG in SYRINGE 0 ML IV SCH
[2022-01-20 07:37] LABS: Hematocrit (blood only) 33.2 % (37-47); Hemoglobin 10.9 g/dL (12.0-16.0); Mean Corpuscular Hemoglobin 30.4 pg (25-34); Mean Corpuscular Hgb Conc 32.8 g/dL (32-36); Mean Corpuscular Volume 92.5 fL (80-100); Mean Platelet Volume 10.4 fL (7.4-10.4); Platelet Count 238 K/uL (130-400); RDW Coefficient of Variation 13.8 % (11.5-14.5); Red Blood Count 3.59 M/uL (4.2-5.4); White Blood Count 10.13 K/uL (4.8-10.8)
[2022-01-20] MEDS ORDERED: MoRPHine SULFATE PF 1 MG/ML 10 ML AMP/VIAL ONE (11:48)
[2022-01-20] MEDS ORDERED: ONDANSETRON INJ 2 MG/ML 2 ML VIAL ONE (11:48)
[2022-01-20] MEDS ORDERED: fentaNYL citrate 100 MCG/2 ML VIAL ONE (11:48)
--- NOTE | 2022-01-20 12:09 | History & Physical Bridge Note ---
Date of Service January 20, 2022 History & Physical Bridge Note I have examined the patient, reviewed the History & Physical and in the interval since the performance of the History & Physical I have noted the following changes of clinical significance: no changes noted
[2022-01-20] MEDS ORDERED: KETOROLAC 30 MG/ML VIAL ONE (12:47)
[2022-01-20] MEDS ORDERED: PHENYLEPHRINE 100MCG/ML 5ML SYR ONE (12:47)
[2022-01-20] MEDS ORDERED: ONDANSETRON INJ 2 MG/ML 2 ML VIAL IV PRN (13:13)
[2022-01-20] MEDS ORDERED: LACTATED RINGER'S 500 ML IV PRN (13:13)
[2022-01-20] MEDS ORDERED: PROMETHAZINE HCL 25 MG in SODIUM CHLORIDE 0.9% 50 ML IV PRN (13:13)
[2022-01-20] MEDS ORDERED: NALBUPHINE HCL INJ 10 MG/ML AMP IV PRN (13:13)
[2022-01-20] MEDS ORDERED: MoRPHine SULFATE PF 1 MG/ML 10 ML AMP/VIAL INT SPINAL ONE (13:13)
[2022-01-20] MEDS ORDERED: ePHEDrine sulfate 50 MG/ML AMP IV PRN (13:13)
[2022-01-20] MEDS ORDERED: NALOXONE HCL 0.08 MG in SYRINGE 1.8 ML IV PRN (13:13)
[2022-01-20] MEDS ORDERED: NALOXONE HCL 0.4 MG/1 ML VIAL/CARP IV PRN (13:13)
[2022-01-20] MEDS ORDERED: diphenhydrAMINE 50 MG/ML VIAL IV PRN (13:13)
[2022-01-20] MEDS ORDERED: HYDROmorphone INJ 0.5 MG/0.5 ML SYR IV PRN (13:13)
[2022-01-20] MEDS ORDERED: NALOXONE HCL 1 MG in SODIUM CHLORIDE 0.9% 1000ML 1,000 ML IV PRN (13:13)
[2022-01-20] MEDS ORDERED: ACETAMINOPHEN 1000 MG/100 ML IV IV PRN (13:13)
[2022-01-20] MEDS ORDERED: SODIUM CHLORIDE 0.9% 1000ML 1,000 ML IV SCH (13:15)
[2022-01-20] MEDS ORDERED: DC INTRASPINAL MORPHINE SCH (13:15)
[2022-01-20] MEDS ORDERED: NO NARCOTICS OR SEDATIVES SCH (13:15)
--- NOTE | 2022-01-20 13:26 | Operative Report ---
PG Post Operative Report Pre & Post Diagnosis Operation Date: 01/20/22 08:50 Pre-Op Diagnosis: Term intrauterine . Gestational diabetes. Desires section. Post-Op Diagnosis: Term intrauterine . Gestational diabetes. Desires section. I identified the patient and participated in the time-out.: Yes Procedure Operation Date: 01/20/22 08:50 Actual Procedures Primary Low Transverse Section (Delivery of Baby Through Abdominal Incision)delivery of live female child at 1236 in OR #3(Bilateral) - Sara Contreras DO Surgeon Sara Contreras DO Cosmetic Manager Porfirio Vickers MD Estimated Blood Loss 600 Findings Consistent with Post-Op Diagnosis Normal fallopian tubes, uterus, ovaries. Viable female , Apgars 8/9. Weight pending, please see nursery chart. Specimens Placenta, cord blood, cord gas Drains Murphy clear yellow Anesthesia Type Spinal Complications none Disposition Accompanied Patient To Recovery: No Indications 36yo @ 39 6/7, desired and requested delivery by section. Description of Procedure The patient was seen in her labor and delivery room, risks benefits and alternatives to surgery were reviewed. Informed consent obtained. Questions were answered. She was taken to the operating room, spinal anesthesia was administered. She was then prepared and draped in the usual sterile fashion in the supine position with a leftward tilt. Timeout was confirmed. A Pfannenstiel skin incision was made with a scalpel, and carried through to the underlying layer of fascia. Fascia was nicked at midline, and this incision was extended bilaterally. The superior aspect of the fascial incision was grasped with Dixie clamps x2, elevated off the underlying rectus abdominis muscles, and dissected sharply and bluntly. In similar fashion, the inferior aspect of the fascial incision was dissected. The rectus abdominis muscles were , and the peritoneum was entered bluntly digitally. This was extended bilaterally. The bladder flap was taken down carefully using Metzenbaum scissors. Using a new scalpel, a low transverse uterine incision was created. Clear amniotic fluid noted. The infant was delivered from a cephalic presentation. The head delivered, followed by shoulders and body. Spontaneous cry on the field. The cord was doubly clamped and cut, and the infant was handed off to the waiting machine ii cutter. A segment was retained for cord gases. Cord blood was obtained. The placenta was delivered spontaneously intact. The uterus was exteriorized, and cleared of all clots and debris. The hysterotomy incision was reapproximated using 0 Vicryl in a running locked stitch. A second layer of the same suture was used to imbricate the incision. Posterior uterus was evaluated and normal. The uterus was returned to the abdomen, and gutters were cleared of clots and debris. Excellent hemostasis was observed. The fascial incision was reapproximated using 0 Vicryl in a running stitch. The subcutaneous tissue was irrigated, and reapproximated using 2-0 plain gut in a running stitch. The skin was reapproximated using 4-0 Vicryl in a running subcuticular stitch. Steri-Strips and a bandage were applied. The patient tolerated the procedure well, and will be taken to the recovery area in stable and good condition. I attest to the content of the Intraoperative Record and any orders documented therein. Any exceptions are noted below. OB Procedure Charges 03412
[2022-01-20] MEDS ORDERED: SENNA 8.6 MG TAB PO PRN (13:38)
[2022-01-20] MEDS ORDERED: HYDROCORTISONE ACETATE 25 MG SUPP PR PRN (13:38)
[2022-01-20] MEDS ORDERED: LACTATED RINGER'S 1,000 ML IV SCH (13:38)
[2022-01-20] MEDS ORDERED: MAGNESIUM HYDROXIDE SUSP 30 ML UDC PO PRN (13:38)
[2022-01-20] MEDS ORDERED: BENZOCAINE 20% AER SPR 82.5 GM CAN EXT PRN (13:38)
[2022-01-20] MEDS ORDERED: DIPHTHERIA/TETANUS/PERTUSSIS 0.5 ML SYR/VIAL IM ONE (13:38)
[2022-01-20 13:53] LABS: Base Excess Cord Arterial Bld -1.3 mEq/L (-9-1.8); CO2 Cord Arterial Blood 51 mmHg (39.1-73.5); HCO3 Cord Arterial Blood 26 mmol/L (19.7-28.5); PO2 Cord Arterial Blood 21 mmHg (4.1-31.7); pH Cord Arterial Blood 7.32 (7.1-7.38)
[2022-01-20 13:58] LABS: Base Excess Cord Venous Blood -0.8 mEq/L (-7.7-1.9); Cord Venous Blood HCO3 24 mmol/L (18.4-26.8); Cord Venous Blood PCO2 39 mmHg (30.4-57.2); Cord Venous Blood PO2 29 mmHg (14.1-43.3)
--- NOTE | 2022-01-20 14:03 | Anesthesiology Progress Note ---
Date of Service January 20, 2022 Anesthesia Post Procedure Vital Signs Vital Signs: Temp Pulse BP Pulse Ox 01/20/22 14:01 75 91 01/20/22 13:59 71 111/73 01/20/22 13:58 71 97 01/20/22 13:54 80 117/71 01/20/22 13:53 81 100 01/20/22 13:48 77 98 01/20/22 13:43 66 99 01/20/22 13:40 68 125/88 01/20/22 13:38 69 97 01/20/22 13:33 70 95 01/20/22 13:29 58 L 137/92 01/20/22 13:28 51 L 100 01/20/22 10:33 36.9 C 85 117/83 01/20/22 07:19 36.7 C 100 H 122/85 Transfer of Care Handoff Completed per policy Notes Mental Status: alert / awake / arousable and participated in evaluation Nausea / Vomiting: adequately controlled Pain: adequately controlled Airway Patency, RR, SpO2: stable & adequate BP & HR: stable & adequate Hydration State: stable & adequate Neuraxial Anesthesia: was administered and sensory block is resolving Anesthetic Complications: no major complications apparent and Pt Satisfied with anesthetic care
[2022-01-20 14:17] LABS: Oxygen Sat Cord Arterial Blood < 60.0 % (<60)
[2022-01-20] MEDS: OXYTOCIN 30 UNITS in LACTATED RINGER'S 1,000 ML IV SCH (14:54)
[2022-01-20] MEDS ORDERED: SODIUM CHLORIDE 0.9% 1000ML 500 ML IV ONE (15:34)
[2022-01-20] MEDS ORDERED: [UNRECOGNIZED DRUG - OTHER] SCH (16:00)
[2022-01-20] MEDS: SIMETHICONE 80 MG CHEW PO SCH ×2 (17:30→20:41)
[2022-01-20] MEDS: KETOROLAC 30 MG/ML VIAL IV PRN (20:41)
[2022-01-20] MEDS: DOCUSATE SODIUM 100 MG CAP PO SCH (20:41)
[2022-01-21] MEDS: OXYTOCIN 30 UNITS in LACTATED RINGER'S 1,000 ML IV SCH (01:15)
[2022-01-21] MEDS: KETOROLAC 30 MG/ML VIAL IV PRN (03:24)
[2022-01-21 06:39] LABS: Basophils # (auto) 0.01 K/uL (0-0.2); Basophils % (auto) 0.1 %; Eosinophils # (auto) 0.06 K/uL (0-0.5); Eosinophils % (auto) 0.6 %; Hematocrit (blood only) 26.8 % (37-47); Hemoglobin 8.8 g/dL (12.0-16.0); Immature Granulocytes # (auto) 0.02 K/uL (0.00-0.02); Immature Granulocytes % (auto) 0.2 %; Lymphocytes # (auto) 1.46 K/uL (1.2-3.4); Lymphocytes % (auto) 13.8 %; Mean Corpuscular Hgb Conc 32.8 g/dL (32-36); Mean Corpuscular Volume 94.4 fL (80-100); Mean Platelet Volume 10.7 fL (7.4-10.4); Monocytes # (auto) 1.01 K/uL (0.11-0.59); Monocytes % (auto) 9.5 %; Neutrophils # (auto) 8.05 K/uL (1.4-6.5); Neutrophils % (auto) 75.8 %; Platelet Count 201 K/uL (130-400); RDW Coefficient of Variation 14.2 % (11.5-14.5); RDW Standard Deviation 48.8 fL (36.4-46.3); Red Blood Count 2.84 M/uL (4.2-5.4); White Blood Count 10.61 K/uL (4.8-10.8)
[2022-01-21] MEDS ORDERED: ONDANSETRON INJ 2 MG/ML 2 ML VIAL IV PRN (07:15)
[2022-01-21] MEDS ORDERED: PROMETHAZINE HCL 25 MG in SODIUM CHLORIDE 0.9% 50 ML IV PRN (07:15)
[2022-01-21] MEDS ORDERED: diphenhydrAMINE 50 MG/ML VIAL IV PRN (07:15)
[2022-01-21] MEDS ORDERED: KETOROLAC 30 MG/ML VIAL IV PRN (07:15)
[2022-01-21] MEDS ORDERED: diphenhydrAMINE Capsule 25 MG CAP PO PRN (07:15)
[2022-01-21] MEDS: SIMETHICONE 80 MG CHEW PO SCH ×4 (07:54→20:23)
[2022-01-21] MEDS: DOCUSATE SODIUM 100 MG CAP PO SCH ×2 (07:54→20:24)
[2022-01-21] MEDS: PRENATAL VITAMIN 1 TAB PO SCH (07:54)
[2022-01-21] MEDS: FERROUS SULFATE 325 MG TAB PO SCH (07:54)
[2022-01-21] MEDS: IBUPROFEN 600 MG TAB PO PRN ×4 (07:55→20:23)
[2022-01-21] MEDS: oxyCODONE/ACETAMINOPHEN 5mg/325mg TAB PO PRN ×4 (07:55→20:23)
--- NOTE | 2022-01-21 08:18 | Obstetrical Progress Note ---
Date of Service January 21, 2022 Assessment & Plan (1) delivery delivered: Plan: 36yo POD 1 s/p LTCS at 39 weeks 6 days complicated by AMA, GDM diet controlled. -Continue routine care -Vitals reviewed- HDS, afebrile -GBS positive, tx with ancef for -Encourage ambulation, regular diet -duggan to be removed this morning with voiding trial -bandages removed, incision site without infection -Pain control with ibuprofen, acetaminophen, toradol PRN -Encourage -Hgb 8.8, stable -f/u in 6 weeks with OB after discharge; dc likely tomorrow (2) Gestational diabetes: Admission and Anticipated Discharge Date Admission Date: January 20, 2022 Supervising Physician Co-Signing Physician Notes Resident Physician Supervision Note: I was present with Dr. Pascual during the history and exam. I discussed the case with the resident and agree with the findings and plan as documented in the note. Any exceptions or clarifications are listed here: POD#1 doing well. Continue routine postop care. Documented By: Sara Contreras DO Subjective Ambulation: no Voiding: no; duggan in place Passing Gas: yes BM: no Diet Tolerance: regular w/o N/V Lochia: small Feeding Type: breast Current Pain Level(1-10): 5 Review of Systems Review of Systems: Denies fevers/chills. Denies dyspnea, cough. Denies chest pain. +mild nipple tenderness during feeds Denies headache. Denies back pain. +mild right sided groin/abdominal pain Physical Exam Physical Exam: General: Alert, oriented, no acute distress Cardiac: Regular rate and rhythm. No murmurs appreciated. Respiratory: Clear to auscultation b/l with good air flow entry, symmetric chest rise and fall. No wheezes or crackles. No increased work of breathing or accessory muscle use Abdomen: Soft, appropriate post op tenderness, nondistended. Fundus firm and palpable at umbilicus. No guarding or rebound. Skin: No rashes or lesions. Bandages removed, incision site clear, dry, intact with no signs of infection. Steri strips in place. Extremities: Warm, dry, well-perfused. No lower extremity edema, erythema or swelling. No calf tenderness. SCDs in place. Results & Data ([facility]) Vital Signs (Past 12 Hours) Vital Signs Temp Pulse Resp BP Pulse Ox 01/21/22 06:00 16 98 01/21/22 05:10 16 98 01/21/22 04:30 16 97 01/21/22 03:10 36.4 C L 64 16 105/69 97 01/21/22 02:00 16 98 01/21/22 01:05 16 97 01/20/22 23:05 36.5 C 75 16 105/71 97 01/20/22 22:00 16 97 01/20/22 21:30 16 98 01/20/22 20:30 16 99 Resident Activity Tracking Resident Involvement: Resident Care Provided Care Provided: OB Delivery
[2022-01-21] MEDS: CHOLECALCIFEROL 5,000 UNITS 125 MCG TAB PO SCH (09:12)
[2022-01-21] MEDS: BUDESONIDE AQ (RHINOCORT AQ) NASAL SPRAY 32 MCG SCH (09:32)
[2022-01-21] MEDS ORDERED: bisacodyL 5 MG TABEC PO SCH (20:00)
[2022-01-22] MEDS: IBUPROFEN 600 MG TAB PO PRN ×3 (02:33→13:13)
[2022-01-22] MEDS: oxyCODONE/ACETAMINOPHEN 5mg/325mg TAB PO PRN ×3 (02:33→13:12)
[2022-01-22 07:09] LABS: Hematocrit (blood only) 29.5 % (37-47); Hemoglobin 9.6 g/dL (12.0-16.0)
--- NOTE | 2022-01-22 07:39 | Obstetrical Progress Note ---
Date of Service January 22, 2022 Assessment & Plan (1) delivery delivered: Plan: 36yo POD 2 s/p LTCS at 39 weeks 6 days complicated by AMA, GDM diet controlled. -Continue routine care -Vitals reviewed- HDS, afebrile -GBS positive, tx with ancef prior to -Encourage ambulation, regular diet -incision site without infection, monitor bruising at home, appears appropriate for LTCS at this time -Pain control with ibuprofen, acetaminophen, percocet -Encourage -Hgb 9.6, stable -f/u in 6 weeks with OB after discharge (2) Gestational diabetes: Admission and Anticipated Discharge Date Admission Date: January 20, 2022 Supervising Physician Co-Signing Physician Notes Patient seen and evaluated and agree with the above findings and plan. Stable for discharge Subjective Ambulation: yes Voiding: yes Passing Gas: yes BM: no Diet Tolerance: regular w/o N/V Lochia: small Feeding Type: breast (w/pump) Current Pain Level(1-10): 3 Review of Systems Review of Systems: Denies fevers/chills. Denies dyspnea, cough. Denies chest pain. Denies headache. Denies back pain. +mild bladder pain when voiding +mild right sided groin/abdominal pain Physical Exam Physical Exam: General: Alert, oriented, no acute distress Cardiac: Regular rate and rhythm. No murmurs appreciated. Respiratory: Clear to auscultation b/l with good air flow entry, symmetric chest rise and fall. No wheezes or crackles. No increased work of breathing or accessory muscle use Abdomen: Soft, appropriate post op tenderness, nondistended. Fundus firm and palpable at 1cm below umbilicus. No guarding or rebound. Skin: No rashes or lesions. Incision site clear, dry, intact with no signs of infection. Steri strips in place. Mild bruising superior to incision site, appears appropriate 2/2 LTCS. Extremities: Warm, dry, well-perfused. No lower extremity edema, erythema or swelling. No calf tenderness. Results & Data ([facility]) Vital Signs (Past 12 Hours) Vital Signs Temp Pulse Resp BP 01/21/22 23:25 36.6 C 80 18 120/83 01/21/22 20:20 36.6 C 77 18 113/78 Resident Activity Tracking Resident Involvement: Resident Care Provided Care Provided: OB Delivery
[2022-01-22] MEDS: DOCUSATE SODIUM 100 MG CAP PO SCH (08:42)
[2022-01-22] MEDS: FERROUS SULFATE 325 MG TAB PO SCH (08:43)
[2022-01-22] MEDS: PRENATAL VITAMIN 1 TAB PO SCH (08:43)
[2022-01-22] MEDS: SIMETHICONE 80 MG CHEW PO SCH ×2 (08:45→13:12)
[2022-01-22] MEDS: CHOLECALCIFEROL 5,000 UNITS 125 MCG TAB PO SCH (09:03)
[2022-01-22] MEDS: BUDESONIDE AQ (RHINOCORT AQ) NASAL SPRAY 32 MCG SCH (09:07)
[2022-01-22] MEDS ORDERED: bisacodyL 10 MG SUPP PR PRN (13:21)
--- NOTE | 2022-01-28 08:36 | Discharge Summary ---
Date of Service January 28, 2022 Admission HPI Per Admitting Provider 36yo @ 39 02/03, scheduled for elective . 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 GBS Bacteriuria - Treat in labor GDM AC u/s's q 4 weeks C/S SCHEDULED FOR 01/20/[address] CONTRERAS NEEDS COVID TEST ON 01/16/2022-ORDERED Discharge Data Consultations 01/20/22 07:07 Consult Anesthesiology Stat Procedures Performed Operation Date: 01/20/22 08:50 Actual Procedures primary low transverse Section (Delivery of Baby Through Abdominal Incision)delivery of live female child at 1236 in OR #3(Bilateral) - Sara Contreras, Hospital Course (1) : Admitted after planned primary section, routine postop course, DC home POD2. Routine followup. Coding Level of Care Code None Diagnoses Z34.90
== END 2022-01-22 13:47 | disposition home or self-care (01) | DRG 788 ==
LOC: PREOBSVTOIN 07:04 → 4S1 07:05 → EDSTATUS 08:50 → 4S2 16:15